=== PATIENT | female | born 1940 | race Hispanic/Latino ===

== ENCOUNTER 2016-08-31 06:09 | Observation (INO) | payer MEDICARE ==
[2016-08-20 15:02] VITALS: BMI 28.7
[2016-08-31] MEDS ORDERED: ePHEDrine 50 mg/ml Inj ONE (07:06)
[2016-08-31] MEDS ORDERED: Propofol 10 mg/ml Inj (20 ML) ONE (07:06)
[2016-08-31] MEDS ORDERED: Rocuronium 10 mg/ml (5 ml) ONE (07:07)
[2016-08-31] MEDS ORDERED: Succinylcholine 200 mg/10 ml Inj IV ONE (07:07)
[2016-08-31] MEDS ORDERED: Bupivacaine 0.25%-Epinephrine 1:200,000 (30 ml) Inj ONE (07:19)
[2016-08-31] MEDS ORDERED: SULFANILAMIDE (AVC) VAG CREAM VG ONE (07:43)
[2016-08-31] MEDS ORDERED: Lactated Ringer's 1,000 ML IV ONE ×2 (08:35→09:55)
[2016-08-31] MEDS ORDERED: HEMOSTATIC MATRIX 10 ML DIS.NEEDLE TOP ONE ×2 (09:00→10:00)
[2016-08-31] MEDS ORDERED: Neostigmine Methylsulfate 2 MG/2 ML ML IV ONE (09:07)
[2016-08-31] MEDS: Gentamicin 80 mg/2mL Inj. ONE ×2 (09:14→09:25)
--- NOTE | 2016-08-31 10:53 | PCM.SURG1 ---
Surgeon's Initial Post Op Note - Surgeon's Notes Surgeon: Bryan Rivera md Bed Worker: none Type of Anesthesia: General Endo, Other Anesthesia Administered By: Dr Diaz Pre-Operative Diagnosis: Rectocele. Cystocele. Vaginal vault prolapse Operative Findings: stage 3 rectocele cystocele. proper epical support. normal bladder anatomy as per cystoscopy at the end of the procedure, ureters efluxing urine freely. DETAILED OPERATIVE REPORT: This is a 75 years old female with long-standing and worsening symptoms of vaginal vault prolapse, rectocele and difficulty defecation. For the past several years, these symptoms of vaginal vault prolapse and vaginal pressure have been worsening; she describes these symptoms as debilitating and adversely affecting her quality of life. the patient underwent a robotic hysterectomy and epical suspensison with good results and is now presenting for a vaginal rapair. The patient failed conservative management which included Kegels exercises as well as lifestyle changes and other pelvic floor rehabilitation exercises. A prolong and detailed discussion about conservative versus surgical management of rectocele, vaginal vault prolapse and cystocele was completed. The patient elected to proceed with surgical management of rectocele repair, sphincter repair. A decision was made to proceed with an posterior vaginal repair avoiding mesh product and sphincteroplasty. After a detailed discussion regarding the pros and cons of primary vaginal repair, The patient elected to proceed with a primary vaginal repair and possible sphincteroplasty. After proper consent was obtained from the patient, patient was taken to the operating room, placed in the dorsolithotomy position; general anesthesia was obtained without difficulty. She was placed in the dorsal lithotomy position, her legs were placed in adjustable Donald stirrups, and careful attention was placed not to over flex or over rotates the lower extremities and the hip or knee joints. Lutz catheter was inserted under sterile conditions. She was prepped and draped appropriately for a vaginal colporhaphy and sphincteroplasty. Palpation identified the urethral length and the bladder neck. A sagittal incision was made in the vaginal epithelium in the postrior compartment beginning at the forchettte, moving proximally towards the apex of the vagina. Lateral dissection underneath the epithelium was performed, leaving a thick flap between the vagina and rectum. The vaginal epithelium was undermined to the vaginal apex, exposing the underlying rectocele and posterior compartment defect. prior to the repair of the posterior defect, the rectal external sphincter was disected off and in a intterupted fashion, the muscle was imbricated in multiple fashior in a circular fashion. this provided support and reiforcement of a sphincter which was disrupted likely during a prior episiotomy in the past. the muscle was reapproximated and embricated withour tension. Next, the postrior defect in the posterior wall was identified and Multiple interrupted sutures using o vicryl material was used. the rectovaginal fascia was re-approximated all the way extending to the apex of the vagina. The rectocele was reduced under the approximation of endopelvic fascia. Redundant vaginal mucosa was excised and the vaginal incision was then closed using a running 2-0 Vicryl ligature. perineoorphy was completed by recreating the perineal body with multiple 0 vycryl suture in interuppeted suture. Attention was placed to the proximal vaginal defect which had an anterior component near the apex. IN a similar fashion the bladder was dissected off and lateral dissection completed using sharp and blunt technique to free the cystocele of the anterior vaginal wall. Multiple 2-0 vycril sutures were used in interupted fashion to approximate the anterior defect without undue tension. good hemostasis noted. Careful approximation of the vaginal mucosa was performed. At this time, the Lutz catheter was removed and a diagnostic cystoscopy was performed. The bladder was distended with about 300 cc of fluid. Both ureteral orifices were noted to be fluxing urine normally. The trigone was normal. There were no noted abnormalities with any evidence of any compromise of the lower urinary tract with mesh material, sutures or instruments. The patient emerged from general anesthesia without any difficulty. The patient was taken to the recovery room in stable condition. Prior to incision patient received prophylactic antibiotics, prior to closure sponge lap and needle counts are correct x2. The 2-inch iodoform gauze vaginal packing was then placed to prevent hematoma formation underneath the vaginal mucosa. Needle, sponge, and instrument counts were correct. Post-Operative Diagnosis: Rectocele stage III cystocele II. short peritneal body. Vaginal vault prolpase Operation Performed: Posterior colporhaphy, A/P repair. Sphincteroplasty vaginal approach. Perineorophy. Cystoscopy Specimen/Specimens Removed: redundant vaginal mucosa Estimated Blood Loss: EBL {In ML}: 40 Blood Products Given: N/A Drains Used: No Drains Post-Op Condition: Good Date of Surgery/Procedure: 08/31/16 Time of Surgery/Procedure: 10:55
[2016-08-31] MEDS ORDERED: Oxycodone/Acetaminophen 5/325 mg Tab PO PRN (11:12)
[2016-08-31] MEDS ORDERED: Lactated Ringer's 1,000 ML IV SCH (11:15)
[2016-08-31] MEDS: Clindamycin 600 MG in Sodium Chloride 0.9% 100 ML IVPB SCH (16:18)
[2016-08-31 21:27] VITALS: O2SAT 100
[2016-09-01] MEDS: Clindamycin 600 MG in Sodium Chloride 0.9% 100 ML IVPB SCH ×2 (01:54→11:46)
[2016-09-01 07:02] LABS: BASO % 0.1 % (0.0-2.0); EOS # 0.1 K/uL (0.0-0.7); EOS % 0.6 % (0.0-4.0); HEMATOCRIT 31.5 % (34.0-47.0); LYMPH # 1.7 K/uL (1.0-4.3); LYMPH % 15.6 % (20.0-40.0); MEAN CELL VOLUME 60.7 fl (81.0-99.0); MEAN CORPUSCULAR HEMOGLOBIN 18.8 pg (27.0-31.0); MONO # 0.7 K/uL (0.0-0.8); NEUT # 8.2 K/uL (1.8-7.0); NEUT % 76.7 % (50.0-75.0); RED CELL DISTRIBUTION WIDTH 16.1 % (11.5-14.5); WHITE BLOOD COUNT 10.7 K/uL (4.8-10.8)
[2016-09-01 07:19] LABS: BLOOD UREA NITROGEN 11 mg/dl (7-17); CALCIUM 8.9 mg/dL (8.4-10.2); CARBON DIOXIDE 29 mmol/L (22-30); CHLORIDE 103 mmol/L (98-107); GFR AFRICAN-AMERICAN > 60; GLUCOSE,RANDOM 113 mg/dL (65-105); POTASSIUM 3.9 MMOL/L (3.6-5.0); SODIUM 140 mmol/l (132-148)
[2016-09-01 07:51] VITALS: BP 134/77; PULSE 70; RESP 209; TEMP 98.1
== END 2016-09-01 11:49 | disposition home or self-care (01) ==
LOC: H.OPSURG 06:09 → H.MEDSURG1 11:12 → INTOOBSV 11:12
PROVIDERS: ADMIT Obstetrics & Gynecology; ATTEND Obstetrics & Gynecology
PROC: 0JQC0ZZ Repair Pelvic Region Subcutaneous Tissue and Fascia, Open Approach (ICD-10-PCS; 2016-08-31)
PROC: 0USGXZZ Reposition Vagina, External Approach (ICD-10-PCS; principal; 2016-08-31 07:45)
PROC: 0JQC0ZZ Repair Pelvic Region Subcutaneous Tissue and Fascia, Open Approach (ICD-10-PCS; 2016-08-31 07:45)
DX: N81.6 Rectocele (principal); I10 Essential (primary) hypertension; N81.10 Cystocele, unspecified; R32 Unspecified urinary incontinence; D56.9 Thalassemia, unspecified
CPT/HCPCS: 36415; 57220; 57260; 80048; 85025; 88305; 96365; G0378; J0330; J1580; J2001; J2405; J2704; J2710; J2765; J3010; J7030; J7120